=== PATIENT | male | born 1995 | race Two or more races ===

== ENCOUNTER 2020-10-14 20:50 | Emergency (ER) | payer MEDICAID ==
[~2020-10-14] VITALS: Ht 172.7 cm; Wt 81.6 kg
--- NOTE | 2020-10-14 21:39 | NUR ---
Patient swabbed for COVID. According to [facility] patient does not need to hold a bed and can wait for results in lobby.
--- NOTE | 2020-10-14 22:37 | NUR ---
Patient given written and verbal discharge instructions. Patient verbalizes understanding of instructions. Patient is ambulatory with steady gait. Refuses offer of [facility] placement. Patient refused list of available shelters in surrounding area. Patient refused to sign papers. Refused any food or beverages. Offered patient to wait in the morning for clinical social work therapist, but wishes to return to street.
[2020-10-14 22:39] VITALS: BP 128/89
== END 2020-10-14 22:39 | disposition home or self-care (01) ==
LOC: ER 20:53
DX: B34.9 Viral infection, unspecified (principal); Z20.822 Contact with and (suspected) exposure to COVID-19; Z59.0 Homelessness
CPT/HCPCS: 87426; 99283; U0003; A4663